=== PATIENT | male | born 1980 | race Caucasian/White ===

== ENCOUNTER 2020-12-23 17:25 | Inpatient (IN) ==
[2020-12-23 18:05] LABS: Basophils # 0.1 K/mcL (0.0-0.2); Basophils % 0.8 %; Eosinophils # 0.1 K/mcL (0.0-0.6); Eosinophils % 1.2 %; Hematocrit 41.7 % (37.5-50.1); Hemoglobin 13.7 g/dL (12.9-16.9); Immature Granulocytes % 0.3 % (0-4); Lymphocytes # 2.6 K/mcL (0.6-4.6); Lymphocytes % 34.8 %; Mean Corpuscular HGB Conc 32.9 g/dL (31.6-35.5); Mean Corpuscular Hemoglobin 27.8 pg (28.0-33.3); Mean Corpuscular Volume 84.6 fL (83.0-100.0); Mean Platelet Volume 9.1 fL (9.4-12.4); Monocytes # 0.8 K/mcL (0.0-1.3); Monocytes % 10.8 %; Neutrophils # 3.9 K/mcL (1.6-8.9); Platelet Count 246 K/mcL (140-400); Red Blood Count 4.93 M/mcL (4.19-5.50); Red Cell Distribution Width 14.3 % (11.5-14.5); Segmented Neutrophils % 52.1 %; White Blood Count 7.5 K/mcL (4.3-11.1)
[2020-12-23 18:19] LABS: Bilirubin,Urine Negative (Negative); Blood,Urine Negative (Negative); Clarity,Urine Clear (Clear); Color,Urine Light-Yellow (Yellow); Glucose,Urine (UA) Normal (Normal); Ketones,Urine Negative (Negative); Leukocyte Esterase,Urine Negative (Negative); Nitrite,Urine Negative (Negative); PH,Urine 6.5 pH Units (5.0-8.0); Protein,Urine Negative (Neg-Trace); Specific Gravity,Urine 1.007 (1.010-1.025); Urobilinogen,Urine Normal (Normal)
[2020-12-23 18:23] LABS: Amphetamine Screen,Urine Negative ng/mL (Cutoff=1000); Barbiturate Screen,Urine Negative ng/mL (Cutoff=200); Benzodiazepines Screen,Urine Negative ng/mL (Cutoff=200); Cannabinoid Screen,Urine Negative ng/mL (Cutoff = 50); Cocaine Screen,Urine Negative ng/mL (Cutoff= 300); Opiate Screen,Urine Negative ng/mL (Cutoff=300); Phencyclidine Screen,Urine Negative ng/mL (Cutoff=25)
[2020-12-23 18:23] LABS: Acetaminophen < 10 mcg/mL (10-20); BUN/Creatinine Ratio 16 (6-26); Blood Urea Nitrogen 15 mg/dL (6-20); Calcium 9.8 mg/dL (8.6-10.3); Carbon Dioxide 24 mEq/L (23-29); Chloride 104 mEq/L (98-107); Chol/HDL Ratio 2.6 (0-4.9); Cholesterol 151 mg/dL (< 200); Ethanol < 10 mg/dL (Less than 10); Glucose 105 mg/dL (70-105); HDL Cholesterol 58 mg/dL (40-59); LDL Cholesterol,Calculated 80 mg/dL (< 100); Osmolality,Calculated 281 (280-300); Salicylate < 2.5 mg/dL (15.0-30.0); Sodium 135 mEq/L (136-145); Triglycerides 63 mg/dL (< 150); eGFR For African Americans > 60 (> 60); eGFR For Non-African Americans > 60 (> 60)
[2020-12-24] MEDS ORDERED: Nicotine 14 MG PATCH.TD24 TD STA (00:39)
[2020-12-24] MEDS ORDERED: Ziprasidone 10 MG in Water for inj. (sterile) 0.5 ML IM ONE (03:14)
[2020-12-24] MEDS ORDERED: Acetaminophen 325 MG TABLET PO PRN (04:20)
[2020-12-24] MEDS ORDERED: haloperidoL 5 MG TABLET PO PRN (04:20)
[2020-12-24] MEDS ORDERED: MOM Conc 10 ML UD.LIQ PO PRN (04:20)
[2020-12-24] MEDS ORDERED: Haloperidol Lactate 5 MG/ML VIAL IM PRN (04:20)
[2020-12-24] MEDS ORDERED: *HR* LORazepam 2 MG/ML VIAL IM PRN (04:20)
[2020-12-24] MEDS ORDERED: hydrOXYzine pamoate 25 MG CAPSULE PO PRN (04:20)
[2020-12-24] MEDS ORDERED: *HR* LORazepam 1 MG TABLET PO PRN (04:20)
[2020-12-24] MEDS ORDERED: QUEtiapine Fumarate 25 MG TABLET PO PRN (04:20)
[2020-12-24] MEDS ORDERED: Mag Hydrox/Al Hydrox/Simeth 30 ML UDC PO PRN (04:20)
[2020-12-24] MEDS: Nicotine 21 MG PATCH.TD24 TD SCH (11:21)
[2020-12-24] MEDS: risperiDONE 1 MG TABLET PO SCH ×2 (13:45→20:51)
[2020-12-24] MEDS: *HR* Buprenorphine HCl 8 MG TAB.SUBL SL SCH ×2 (13:45→20:51)
[2020-12-24 14:04] LABS: Estimated Average Glucose 111 mg/dl; Hemoglobin A1C 5.5 %
[2020-12-25] MEDS: risperiDONE 1 MG TABLET PO SCH ×2 (10:09→20:41)
[2020-12-25] MEDS: *HR* Buprenorphine HCl 8 MG TAB.SUBL SL SCH ×2 (10:09→20:41)
[2020-12-25] MEDS: Nicotine 21 MG PATCH.TD24 TD SCH (10:09)
[2020-12-26] MEDS: *HR* Buprenorphine HCl 8 MG TAB.SUBL SL SCH (08:43)
[2020-12-26] MEDS: risperiDONE 1 MG TABLET PO SCH (08:43)
[2020-12-26] MEDS: Nicotine 21 MG PATCH.TD24 TD SCH (08:44)
[2020-12-26 08:57] VITALS: BP 118/73
== END 2020-12-26 11:55 | disposition home or self-care (01) | DRG 751 ==
LOC: EMEROOARM 17:25 → 1ANU 12-24 10:41
PROVIDERS: ADMIT Psychiatry & Neurology Psychiatry; ATTEND Psychiatry & Neurology Psychiatry